=== PATIENT | female | born 1985 | race Caucasian/White ===

== ENCOUNTER 2016-08-07 13:53 | Emergency (ER) | payer SELFPAY ==
--- NOTE | 2016-08-07 15:29 | ED.PDOC ---
History of Present Illness - General Chief Complaint: General Stated Complaint: Flu-like symptoms Time Seen by Provider: 08/07/16 15:20 Source: patient, RN notes reviewed, Vital Signs reviewed Exam Limitations: no limitations - History of Present Illness Initial Comments: Patient is a 31 y/o female who had nausea yesterday. This progressed today into feeling fatigued, malaise, myalgias, fever/chills. Her also reports that she has had epigastric burning and headaches. Patient has had headaches off and on all her life. Patient took an Aleve this AM for feeling bad. It did not help. Timing/Duration: 4-6 hours Severity: moderate Improving Factors: nothing Worsening Factors: nothing Associated Symptoms: fever/chills, headaches, loss of appetite, malaise, nausea/ vomiting, weakness Allergies/Adverse Reactions: Allergies NO KNOWN ALLERGY Allergy (Verified 08/07/16 14:16) Home Medications: Ambulatory Orders Oseltamivir [Tamiflu] 75 mg PO BID #10 cap 08/07/16 Review of Systems - Review of Systems Constitutional: States: chills, fever, malaise, weakness EENTM: States: no symptoms reported Respiratory: States: no symptoms reported Cardiology: States: no symptoms reported Gastrointestinal/Abdominal: States: abdominal pain, nausea Genitourinary: States: no symptoms reported Musculoskeletal: States: muscle pain Skin: States: other - sensitivity all over Neurological: States: headache, weakness Endocrine: States: no symptoms reported Hematologic/Lymphatic: States: no symptoms reported Past Medical History (General) - Patient Medical History Hx Stroke: No Hx Congestive Heart Failure: No Hx Hypertension: No Hx Gastroesophageal Reflux: No Surgical History: no surgical history - Vaccination History Hx Tetanus, Diphtheria Vaccination: No Hx Influenza Vaccination: No Hx Pneumococcal Vaccination: No Immunizations Up to Date: Yes - Social History Hx Tobacco Use: No Hx Chewing Tobacco Use: No Hx Alcohol Use: Yes - Occas Hx Substance Use: No Hx Substance Use Treatment: No Hx Depression: No Feels Threatened In Home Enviroment: No Feels Threatened In a Relationship: No Hx Physical Abuse: No Hx Emotional Abuse: No Hx Suspected Abuse: No - Activities of Daily Living Hospice Agency (if applicable):: None - Female History Patient is a Female of Child Bearing Age (10 -59 yrs old): Yes Patient : - Possibly Family Medical History - Family History Grandparents Family History: Unknown Physical Exam - Physical Exam General Appearance: Alert, Comfortable Eye Exam: bilateral normal Ears, Nose, Throat: hearing grossly normal, normal ENT inspection, normal pharynx Neck: non-tender Respiratory: lungs clear, normal breath sounds, no respiratory distress, no accessory muscle use Cardiovascular/Chest: regular rate, rhythm, no edema, no gallop, no murmur Gastrointestinal/Abdominal: normal bowel sounds, non tender, soft, no organomegaly, no pulsatile mass Extremity: normal range of motion, non-tender, normal inspection, no pedal edema Neurologic: alert, normal mood/affect, oriented x 3 Skin Exam: normal color, warm/dry Progress - Results/Orders Results/Orders: 08/07/16 14:34 Temperature 100.3 F H Pulse Rate [L 120 H Arm] Respiratory 20 Rate Blood Pressure 124/88 [L Arm] O2 Sat by Pulse 98 Oximetry Laboratory Results Urine Color Yellow (Yellow) 08/07/16 14:20 Urine Appearance Clear (Clear) 08/07/16 14:20 Urine pH 5.5 (4.5-7.8) 08/07/16 14:20 Ur Specific [place] >= 1.030 (1.005-1.030) 08/07/16 14:20 Urine Protein Negative mg/dL 08/07/16 14:20 Urine Glucose (UA) Negative mg/dL (Negative) 08/07/16 14:20 Urine Ketones Negative mg/dL (NEGATIVE) 08/07/16 14:20 Urine Blood Moderate (Negative) H 08/07/16 14:20 Urine Nitrite Negative 08/07/16 14:20 Urine Bilirubin Negative (NEGATIVE) 08/07/16 14:20 Urine Urobilinogen 0.2 mg/dL (0.2-1.0) 08/07/16 14:20 Ur Leukocyte Esterase Negative (Negative) 08/07/16 14:20 Urine RBC 3-5 /hpf H 08/07/16 14:20 Urine WBC 1-3 /hpf 08/07/16 14:20 Ur Epithelial Cells 3-5 /hpf 08/07/16 14:20 Urine Bacteria 0 08/07/16 14:20 Urine Mucus Small 08/07/16 14:20 Urine HCG, Qual Negative 08/07/16 14:20 Departure - Departure Clinical Impression: Flu-like symptoms, Reflux gastritis Headache Qualifiers: Headache type: unspecified Headache chronicity pattern: acute headache Intractability: not intractable Qualifier Code: (R51) Headache Time of Disposition: 15:32 Disposition: Discharge to Home or Self Care Condition: Fair Departure Forms: ED Discharge - Pt. Copy, Patient Portal Self Enrollment Diet: resume usual diet Prescriptions: Oseltamivir [Tamiflu] 75 mg PO BID #10 cap Home Medications: Ambulatory Orders Oseltamivir [Tamiflu] 75 mg PO BID #10 cap 08/07/16 Additional Instructions: Stay well-hydrated. Tylenol for fever/pain. Follow up if symptoms worsen.
[2016-08-07 16:24] VITALS: BP 118/74; TEMP 99.5; O2SAT 99
== END 2016-08-07 15:45 | disposition home or self-care (01) ==
LOC: ER 13:53
DX: K29.60 Other gastritis without bleeding (principal); R51 Headache; R11.0 Nausea